=== PATIENT | female | born 1970 | race Caucasian/White ===

== ENCOUNTER → 2020-12-16 | Outpatient (CLI) | payer SELFPAY ==
--- NOTE | 2020-12-16 15:18 | RAD ---
EXAM: Right breast diagnostic mammogram with tomosynthesis; right breast sonogram. HISTORY: 50-year-old female presents with right breast pain, skin thickening and erythema. The patien t was diagnosed with mastitis an outside facility. TECHNIQUE: Full-field digital craniocaudal and mediolateral oblique 2D and 3D tomosynthesis images of the right breast are obtained for evaluation. Computer aided detection was applied. Sonographic imag ing of the right breast including all 4 quadrants and the retroareolar region was performed. COMPARISON: There is no prior study for comparison at the time of dictation. An addendum to this repo rt be submitted when the prior study becomes available. BREAST PARENCHYMAL DENSITY: Level D - Extremely dense. FINDINGS: There is increased density throughout the central aspect of the right breast underlying the site of palpable concern. There is anterior right breast skin thickening. The right nipple is pulled inwards, without myra nipple retraction. There are prominent axillary and axillary tail lymph nodes . There is suggestion of architectural distortion within the 1:00 position of the right breast at mid depth in the mediolateral oblique projection, without a clear correlate in the craniocaudal projecti on or convincing mass on tomosynthesis images. No suspicious calcification is seen. Sonographic imaging of the right breast demonstrates diffuse parenchymal heterogeneous echodensity du e to suspected edema. This probably at the 6:00 to 11:00 positions. There is induration of the skin a nd erythema overlying this location. No drainable fluid collection or solid mass is seen. There is a suspected reactive lymph node with thickened cortex within the axilla measuring 1.8 cm maximum dimens ion. IMPRESSION: 1. Anterior right breast skin thickening and erythema with underlying increased parenchymal density a t the site of palpable concern and pain. The combined symptomatology and mammographic and sonographic appearance favors mastitis. No abscess is seen. No concerning mass is seen. 2. Suggestion of distortion within the 1:00 position of the right breast at mid depth which still per sist on multiple images and is likely due to summation artifact. 3. BI-RADS Category 3: Probably benign finding(s). Short term follow up with a diagnostic right breas t mammogram and sonogram in 3 months following treatment for reported mastitis is recommended to conf irm resolution and exclude a persistent underlying lesion. 4. An addendum to this report was submitted to prior studies are available. The patient reports an un remarkable mammogram performed in outside facility approximately 6 months prior to this exam. If your mammogram demonstrates that you have dense breast tissue, which could hide abnormalities, and if you have other risk factors for breast cancer that have been identified, you might benefit from s upplemental screening tests that may be suggested by your ordering physician. Dense breast tissue, i n and of itself, is a relatively common condition. This information is not provided to cause undue c oncern, but rather to raise your awareness and to promote discussion with your physician regarding th e presence of other risk factors, in addition to dense breast tissue. A report of your mammography re sults will be sent to you and your physician. You should contact your physician if you have any ques tions or concerns regarding this report. Mammography is a sensitive method for finding small breast cancers, but it does not detect them all a nd is not a substitute for careful clinical examination. A negative mammogram does not negate a clin ically suspicious finding and should not result in delay in biopsying a clinically suspicious abnorma lity. PQRS compliance statement - Patient information was entered into a reminder system with a target due date for the next mammogram. "Our facility is accredited by the [employer] Mamm[employer]." Electronically signed by: Jeimy Tenorio MD (12/16/2020 3:16 PM) [id number]
== END ==
LOC: MAMMO 13:30
PROVIDERS: ATTEND Nurse Practitioner Women's Health
DX: N64.4 Mastodynia (principal)
CPT/HCPCS: 76641; 77065; G0279; 77061